=== PATIENT | male | born 1995 | race Hispanic/Latino ===

== ENCOUNTER 2021-10-22 13:22 | Emergency (ER) | payer SELFPAY ==
[~2021-10-22] VITALS: Ht 154.9 cm; Wt 52.1 kg
[2021-10-22 13:23] VITALS: BP 130/60
[2021-10-22] MEDS ORDERED: BACITRACIN OINTMENT 30GM TUBE TOP ONE (16:40)
[2021-10-22] MEDS ORDERED: BOOSTRIX/ADACEL VACCINE (DIPHTH/PERTUSS/ACELL/TETANUS) 0.5ML SYR IM ONE (16:40)
[2021-10-22] MEDS ORDERED: NORCO, ANEXSIA 5/325MG TABLET (HYDROcodone/ACETAMINOPHEN) PO ONE (16:50)
[2021-10-22] MEDS ORDERED: AMOX875T2 PO (16:56)
== END 2021-10-22 17:21 | disposition home or self-care (01) ==
LOC: M ED 13:22
DX: T23.262A Burn of second degree of back of left hand, initial encounter (principal); X10.2XXA Contact with fats and cooking oils, initial encounter; Y92.018 Other place in single-family (private) house as the place of occurrence of the external cause